=== PATIENT | female | born 1990 | race Caucasian/White ===

== ENCOUNTER 2016-12-12 23:44 | Emergency (ER) | payer OTHER ==
[2016-12-12] MEDS ORDERED: IOPAMIDOL 370 (76%) 100 ML VIAL IV ONE (23:45)
[2016-12-13] MEDS ORDERED: MORPHINE SULFATE 4 MG/ML SYRINGE ONE (00:36)
[2016-12-13] MEDS ORDERED: LACTATED RINGERS 1,000 ML ONE (00:36)
[2016-12-13] MEDS ORDERED: PROCHLORPERAZINE 5 MG/ML 2 ML VIAL ONE (00:36)
[2016-12-13 00:43] LABS: I-STAT CHLORIDE 101 mEq/L (101-111); I-STAT CREATININE 0.8 mg/dL (0.6-1.3); I-STAT GLUCOSE 105 mg/dL (70-105); I-STAT TCO2 26 mEq/L (21-31)
[2016-12-13 00:45] LABS: ABSOLUTE NEUTROPHIL COUNT 2.7 K/mm3 (1.8-7.7); BASO % 0.5 % (0.2-1.0); EOS # 0.1 (0.0-0.5); HEMATOCRIT 43.8 % (37.0-47.0); IMM NEUT% 0.5 % (0-1); LYMPH # 0.9 (1.0-4.8); MEAN CELL VOLUME 90.9 fl (81.0-99.0); MEAN CORPUSCULAR HEMOGLOBIN 31.1 pg (27.0-31.0); MEAN CORPUSCULAR HGB CONC 34.2 g/dl (33.0-37.0); MEAN PLATELET VOLUME 9.5 fl (7.4-10.4); MONO # 0.4 (0.0-0.8); MONO % 9.9 % (4-12); NEUT % 66.1 % (43-75); PLATELET COUNT 226 K/mm3 (130-400); RED CELL DISTRIBUTION WIDTH 11.5 % (11.5-14.5)
[2016-12-13 01:58] LABS: PH,URINE 6.5 (5.0-8.0); SPECIFIC GRAVITY 1.005 (1.001-1.030); URINE BILIRUBIN NEGATIVE (NEGATIVE); URINE BLOOD NEGATIVE (NEGATIVE); URINE GLUCOSE (UA) NEGATIVE (NEGATIVE); URINE LEUKOCYTE ESTERASE NEGATIVE (NEGATIVE); URINE NITRITE NEGATIVE (NEGATIVE); URINE PROTEIN TRACE (NEGATIVE); URINE UROBILINOGEN NORMAL (0-1 mg/dl)
[2016-12-13 01:59] LABS: URINE APPEARANCE CLEAR; URINE COLOR YELLOW
[2016-12-13] MEDS ORDERED: FAMOTIDINE 20 MG TABLET ONE (02:17)
[2016-12-13] MEDS ORDERED: MAALOX/LIDO2%VISC/SIMETHICONE 40 ML BOT ONE (02:17)
[2016-12-13] MEDS ORDERED: SUCRALFATE 1 G/10 ML DOSE ONE (02:17)
[2016-12-13 03:05] LABS: BLOOD UREA NITROGEN 11 mg/dL (7-25)
[2016-12-13 03:06] LABS: ALB/GLOB RATIO 1.4 (>1.0); ALBUMIN 4.1 gm/dL (3.5-5.7); ALT/SGPT 23 U/L (7-52); BUN/CREATININE RATIO 16 (6-20); GLOMERULAR FILTRATION RATE 101 mL/min (60-116); LIPASE 19 U/L (11-82)
--- NOTE | 2016-12-13 08:19 | CT ---
ABD/PELVIS W/ CON COMPARISON: None. HISTORY: Increasing epigastric pain with nausea, vomiting, and diarrhea for 5 days. Alcohol abuse. Technique: Intravenous injection 100 mL Isovue 370. Using a [employer] Aquilion [address] scanner, images were obtained from the diaphragm to the floor the pelvis. An automated dose reduction technique was used to minimize patient radiation dose. Dose information: CTDIvol (mGy): 5.70 DLP(mGycm): 277.90 FINDINGS: Lung bases and chest: Normal lung bases. Breast implants. Inferior mediastinum and heart: Normal. Liver: Normal. Gallbladder:Normal. Bile ducts: Normal. Pancreas: Normal. Spleen: Normal. Adrenal glands: Normal. Kidneys: Normal. Ureters: Normal Urinary bladder: Normal. Uterus and adnexa: Normal. Blood vessels: Normal Lymph nodes: Normal Stomach: Severely distended with fluid. No wall thickening. No evidence of ulcer or mass. Duodenum: Normal Small intestine: Multiple loops of fluid-filled nondistended bowel Appendix: Normal Colon: Fluid in the cecum and the ascending colon. Abdominal wall and supporting musculature: Normal Bones: Normal IMPRESSION: 1. Evidence of gastroenteritis, with a severely distended fluid containing stomach, multiple loops of ileum with fluid, and fluid in the cecum and ascending colon. Preliminary report by [facility] radiologist Willy Mcgee M.D., 12/13/2016 at 01:28
== END 2016-12-13 03:29 | disposition home or self-care (01) ==
LOC: ED 23:44
DX: R10.13 Epigastric pain (principal); R11.10 Vomiting, unspecified
CPT/HCPCS: 83690; 84703; 85025; 80047; 80053; 80307; 81003; 74177; 96375; 99284 ×2; 96374; 96361 ×2; 93005; A9270 ×3; J0780; J2270; J7120; Q9967